=== PATIENT | male | born 1960 | race Hispanic/Latino ===

== ENCOUNTER 2024-08-27 17:37 | Inpatient (IN) | payer MEDICARE ==
[~2024-08-27] VITALS: Ht 167.6 cm; Wt 73.0 kg
[2024-08-27 18:35] LABS: BASOPHILS % 0.5 % (0.0-1.0); EOSINOPHILS # (AUTO) 0.1 (0.0-0.4); EOSINOPHILS % 3.2 % (0.0-6.0); HEMATOCRIT 16.6 % (38.2-49.6); LYMPHOCYTES % 22.1 % (18.0-39.1); MEAN CORPUSCULAR HEMOGLOBIN 30.8 pg (28-32); MEAN CORPUSCULAR HGB CONC 31.9 g/dL (31-35); MEAN CORPUSCULAR VOLUME 96.5 fL (81-99); MONOCYTES # (AUTO) 0.3 (0.2-0.8); MONOCYTES % 7.6 % (4.4-11.3); NEUTROPHILS # (AUTO) 2.9 (2.1-6.9); NEUTROPHILS % 66.4 % (38.7-80.0); PLATELET COUNT 176 x10e3/uL (140-360); RED BLOOD COUNT 1.72 x10e6/uL (4.3-5.7); RED CELL DISTRIBUTION WIDTH 14.8 % (11.7-14.4); WHITE BLOOD COUNT 4.34 x10e3/uL (4.8-10.8)
[2024-08-27 18:39] LABS: HEMOGLOBIN 5.3 g/dL (14.0-18.0)
[2024-08-27 18:56] LABS: ALBUMIN 3.1 g/dL (3.5-5.0); ALBUMIN/GLOBULIN RATIO 1.1 (0.8-2.0); ANION GAP 18.4 mmol/L (8-16); BILIRUBIN,TOTAL 0.6 mg/dL (0.2-1.2); CALCIUM 8.8 mg/dL (8.4-10.2); CREATININE, SERUM 7.27 mg/dL (0.72-1.25); TOTAL PROTEIN 5.8 g/dL (6.5-8.1)
[2024-08-27 19:01] LABS: POTASSIUM 5.4 mmol/L (3.5-5.1)
[2024-08-27] MEDS ORDERED: SODIUM CHLORIDE 0.9% 100 ML ONE (19:20)
[2024-08-27] MEDS ORDERED: IOPAMIDOL 370 MG/ML 100 ML INFUS..BTL INJ ONE (19:20)
[2024-08-27] MEDS ORDERED: HYDROCODONE/APAP 7.5MG-325MG 1 EA TAB PO ONE (20:15)
[2024-08-27] MEDS: SODIUM CHLORIDE 0.9% 250ML 250 ML IV ONE (20:19)
[2024-08-27] MEDS ORDERED: DEXTROSE 50% SYRINGE 50 ML IV PRN (21:15)
[2024-08-27] MEDS ORDERED: HYDRALAZINE HCL 20 MG/ML VIAL IV PRN (21:15)
[2024-08-27 22:13] VITALS: PULSE 78; RESP 21; TEMP 98.2
[2024-08-27] MEDS ORDERED: OMEPRAZOLE40 MG PO (23:18)
[2024-08-27] MEDS ORDERED: SODIUM BICARBO650 MG PO (23:18)
[2024-08-27] MEDS ORDERED: NIFEDIPINE ER30 M1 PO (23:18)
[2024-08-27] MEDS ORDERED: ATORVASTATIN CA20 MG PO (23:18)
[2024-08-27 23:26] VITALS: BP 165/54; PULSE 70; RESP 15; TEMP 97.6; O2SAT 98
[2024-08-27 23:30] VITALS: BP 160/54; PULSE 70; RESP 19; TEMP 97.6; O2SAT 98
[2024-08-27 23:45] VITALS: BP 160/57; PULSE 70; RESP 17; O2SAT 97
[2024-08-28] VITALS (28 sets, daily range): BP systolic 135–172; BP diastolic 45–111; PULSE 70–85; RESP 16–25; TEMP 97.6–98.4; O2SAT 91–100
[2024-08-28 00:50] LABS: % IRON SATURATION 25 % (15-50); IRON 59 ug/dL (65-175); TOTAL IRON BINDING CAPACITY 232 ug/dL (261-478); TRANSFERRIN 166 mg/dL (174-364)
[2024-08-28] MEDS: SOD POLYSTYRENE SULFONATE SUSP 15 GM/60 ML BTL PO ONE (00:56)
[2024-08-28 01:33] LABS: FOLATE 3.7 ng/mL (7.0-15.4)
[2024-08-28] MEDS: SODIUM CHLORIDE 0.9% 250ML 250 ML IV ONE (02:22)
[2024-08-28] MEDS ORDERED: ONDANSETRON HCL INJ 2MG/ML 2ML 2 MG/ML VIAL IV PRN (05:15)
[2024-08-28] MEDS ORDERED: MELATONIN 3 MG TAB PO PRN (05:15)
[2024-08-28] MEDS ORDERED: METOPROLOL TARTRATE INJ 1 MG/ML VIAL IV PRN (05:15)
[2024-08-28] MEDS ORDERED: ACETAMINOPHEN 325 MG TAB PO PRN (05:15)
[2024-08-28] MEDS ORDERED: DOCUSATE SODIUM 100 MG CAP PO PRN (05:15)
[2024-08-28] MEDS ORDERED: ALBUTEROL/IPRATROPIUM 3 ML NEB NEB PRN (05:15)
[2024-08-28 06:39] LABS: BASOPHILS % 0.4 % (0.0-1.0); EOSINOPHILS % 0.1 % (0.0-6.0); HEMATOCRIT 25.5 % (38.2-49.6); HEMOGLOBIN 8.6 g/dL (14.0-18.0); LYMPHOCYTES # (AUTO) 0.3 (1.0-3.2); LYMPHOCYTES % 4.1 % (18.0-39.1); MEAN CORPUSCULAR HEMOGLOBIN 30.5 pg (28-32); MEAN CORPUSCULAR HGB CONC 33.7 g/dL (31-35); MEAN CORPUSCULAR VOLUME 90.4 fL (81-99); MONOCYTES # (AUTO) 0.4 (0.2-0.8); MONOCYTES % 6.2 % (4.4-11.3); NEUTROPHILS # (AUTO) 6.1 (2.1-6.9); NEUTROPHILS % 88.9 % (38.7-80.0); PLATELET COUNT 166 x10e3/uL (140-360); RED BLOOD COUNT 2.82 x10e6/uL (4.3-5.7); WHITE BLOOD COUNT 6.91 x10e3/uL (4.8-10.8)
[2024-08-28 07:11] LABS: ANION GAP 14.8 mmol/L (8-16); CALCIUM 8.8 mg/dL (8.4-10.2); CREATININE, SERUM 4.22 mg/dL (0.72-1.25); POTASSIUM 3.8 mmol/L (3.5-5.1)
[2024-08-28] MEDS: INSULIN REGULAR, HUMAN 100 UNIT/1 ML SQ SCH (07:30)
[2024-08-28] MEDS: CYANOCOBALAMIN INJ 1,000 MCG/ML VIAL IM ONE (08:20)
[2024-08-28] MEDS: FOLIC ACID 1 MG TAB PO SCH (08:20)
[2024-08-28] MEDS: NIFEDIPINE CR 30 MG TAB PO SCH (08:21)
[2024-08-28] MEDS: SODIUM BICARBONATE 650 MG TAB PO SCH (08:21)
[2024-08-28] MEDS: EPOETIN ALFA-EPBX 10,000 UNIT/ML VIAL SC SCH (17:05)
[2024-08-28] MEDS: IRON SUCROSE 100 MG in SODIUM CHLORIDE 0.9% 100 ML IV SCH (17:06)
[2024-08-28 18:11] LABS: BASOPHILS % 0.3 % (0.0-1.0); EOSINOPHILS % 0.2 % (0.0-6.0); HEMATOCRIT 24.3 % (38.2-49.6); HEMOGLOBIN 8.2 g/dL (14.0-18.0); LYMPHOCYTES # (AUTO) 0.7 (1.0-3.2); LYMPHOCYTES % 7.8 % (18.0-39.1); MEAN CORPUSCULAR HEMOGLOBIN 30.3 pg (28-32); MEAN CORPUSCULAR HGB CONC 33.7 g/dL (31-35); MEAN CORPUSCULAR VOLUME 89.7 fL (81-99); MONOCYTES # (AUTO) 0.6 (0.2-0.8); MONOCYTES % 6.8 % (4.4-11.3); NEUTROPHILS # (AUTO) 7.5 (2.1-6.9); NEUTROPHILS % 84.3 % (38.7-80.0); PLATELET COUNT 156 x10e3/uL (140-360); RED BLOOD COUNT 2.71 x10e6/uL (4.3-5.7); RED CELL DISTRIBUTION WIDTH 16.5 % (11.7-14.4); WHITE BLOOD COUNT 8.87 x10e3/uL (4.8-10.8)
[2024-08-28] MEDS: ATORVASTATIN 20 MG TAB PO SCH (20:23)
[2024-08-28] MEDS: SODIUM CHLORIDE 0.9% 250ML 250 ML ONE (20:24)
[2024-08-29 03:00] VITALS: BP 143/59; RESP 17; O2SAT 100
[2024-08-29 07:07] LABS: BASOPHILS % 0.5 % (0.0-1.0); EOSINOPHILS # (AUTO) 0.2 (0.0-0.4); HEMATOCRIT 24.7 % (38.2-49.6); HEMOGLOBIN 8.1 g/dL (14.0-18.0); LYMPHOCYTES # (AUTO) 0.9 (1.0-3.2); LYMPHOCYTES % 11.4 % (18.0-39.1); MEAN CORPUSCULAR HEMOGLOBIN 30.3 pg (28-32); MEAN CORPUSCULAR HGB CONC 32.8 g/dL (31-35); MEAN CORPUSCULAR VOLUME 92.5 fL (81-99); MONOCYTES # (AUTO) 0.4 (0.2-0.8); MONOCYTES % 5.3 % (4.4-11.3); NEUTROPHILS # (AUTO) 6.1 (2.1-6.9); NEUTROPHILS % 79.5 % (38.7-80.0); PLATELET COUNT 149 x10e3/uL (140-360); RED BLOOD COUNT 2.67 x10e6/uL (4.3-5.7); RED CELL DISTRIBUTION WIDTH 16.3 % (11.7-14.4); WHITE BLOOD COUNT 7.61 x10e3/uL (4.8-10.8)
[2024-08-29 07:36] LABS: ANION GAP 14.6 mmol/L (8-16); CALCIUM 9.3 mg/dL (8.4-10.2); CREATININE, SERUM 6.92 mg/dL (0.72-1.25); POTASSIUM 4.6 mmol/L (3.5-5.1)
[2024-08-29 08:00] VITALS: BP 139/57; PULSE 68; RESP 20; TEMP 97.8; O2SAT 95
[2024-08-29 08:19] VITALS: PULSE 73; RESP 18; O2SAT 98
[2024-08-29 08:43] VITALS: BP 140/66
[2024-08-29] MEDS: CYANOCOBALAMIN INJ 1,000 MCG/ML VIAL IM SCH (08:43)
[2024-08-29 09:40] VITALS: PULSE 74; RESP 18; O2SAT 98
[2024-08-29] MEDS ORDERED: PANTOPRAZOLE SO40 MG PO (10:46)
[2024-08-29] MEDS ORDERED: Folic Acid PO (10:46)
[2024-08-29] MEDS ORDERED: VITAMIN B-121000 MCG PO (10:46)
[2024-09-10] MEDS ORDERED: CYANOCOBALAMIN INJ 1,000 MCG/ML VIAL IM SCH (09:00)
== END 2024-08-29 11:20 | disposition home or self-care (01) | DRG 811 ==
LOC: ER 18:58 → ERHOLD 21:10 → ICU 22:51
PROVIDERS: ADMIT Internal Medicine; ATTEND Internal Medicine
PROC: 30233N1 Transfusion of Nonautologous Red Blood Cells into Peripheral Vein, Percutaneous Approach (ICD-10-PCS; principal; 2024-08-27)
PROC: 5A09357 Assistance with Respiratory Ventilation, Less than 24 Consecutive Hours, Continuous Positive Airway Pressure (ICD-10-PCS; 2024-08-27)
PROC: 30233N1 Transfusion of Nonautologous Red Blood Cells into Peripheral Vein, Percutaneous Approach (ICD-10-PCS; 2024-08-28)
PROC: 5A1D70Z Performance of Urinary Filtration, Intermittent, Less than 6 Hours Per Day (ICD-10-PCS; 2024-08-28)
DX: D62 Acute posthemorrhagic anemia (principal); J96.01 Acute respiratory failure with hypoxia; N18.6 End stage renal disease; I12.0 Hypertensive chronic kidney disease with stage 5 chronic kidney disease or end stage renal disease; K92.1 Melena; J81.1 Chronic pulmonary edema; J90 Pleural effusion, not elsewhere classified; D51.9 Vitamin B12 deficiency anemia, unspecified; D52.9 Folate deficiency anemia, unspecified; D63.8 Anemia in other chronic diseases classified elsewhere; E11.22 Type 2 diabetes mellitus with diabetic chronic kidney disease; E87.5 Hyperkalemia; E78.5 Hyperlipidemia, unspecified; Z99.2 Dependence on renal dialysis; K21.9 Gastro-esophageal reflux disease without esophagitis; R16.0 Hepatomegaly, not elsewhere classified; F17.210 Nicotine dependence, cigarettes, uncomplicated; Z53.29 Procedure and treatment not carried out because of patient's decision for other reasons; Z89.511 Acquired absence of right leg below knee; Z79.899 Other long term (current) drug therapy
CPT/HCPCS: 36415; 74174; 80048; 80053; 82607; 82746; 82948; 83540; 84466; 85025; 85045; 86850; 86900; 86920; 90962; 93005; 94660; 94799; 99252; 99284; J1756; J2470; J3420; J7050; P9016; Q9967